=== PATIENT | male | born 1985 | race Two or more races ===

== ENCOUNTER 2016-06-14 20:03 | Emergency (ER) | payer MEDICAID, OTHER ==
[~2016-06-14] VITALS: Ht 172.7 cm; Wt 79.4 kg
[2016-06-14 20:37] VITALS: BP 110/68
[2016-06-14] MEDS ORDERED: ACETAMINOPHEN/CODEINE#3 (300/30mg) TAB PO ONE (22:30)
== END 2016-06-14 22:52 | disposition home or self-care (01) ==
LOC: ER 20:03
DX: S93.402A Sprain of unspecified ligament of left ankle, initial encounter (principal); S90.31XA Contusion of right foot, initial encounter; F17.210 Nicotine dependence, cigarettes, uncomplicated; W19.XXXA Unspecified fall, initial encounter; Y93.89 Activity, other specified; Y99.8 Other external cause status; Y92.89 Other specified places as the place of occurrence of the external cause
CPT/HCPCS: 29515; 73610; 73630

== ENCOUNTER 2016-11-05 16:10 | Emergency (ER) | payer MEDICAID ==
[~2016-11-05] VITALS: Ht 175.3 cm; Wt 65.8 kg
[2016-11-05 18:49] VITALS: BP 109/59
[2016-11-05] MEDS ORDERED: BACITRACIN TOP OINT 1 UD PKG TOP ONE (19:45)
[2016-11-05] MEDS ORDERED: NEOMYCIN-BACITRACIN-POLYM 15GM TOP OINT TOP ONE (22:00)
== END 2016-11-05 21:08 | disposition home or self-care (01) ==
LOC: ER 16:23
DX: S00.93XA Contusion of unspecified part of head, initial encounter (principal); L03.811 Cellulitis of head [any part, except face]; F17.210 Nicotine dependence, cigarettes, uncomplicated; W18.39XA Other fall on same level, initial encounter; Y93.89 Activity, other specified; Y92.89 Other specified places as the place of occurrence of the external cause; Y99.8 Other external cause status
CPT/HCPCS: 70450